=== PATIENT | male | born 1985 | race Caucasian/White ===

== ENCOUNTER 2020-09-29 12:48 | Inpatient (IN) | payer OTHER ==
[~2020-09-29] VITALS: Ht 180.3 cm; Wt 90.7 kg
[~2020-09-29 12:48] MED LIST: GILTUSS TR1 TAB.SR . PO; PROAIR HFA8.5 GM IH
[2020-10-06] MEDS ORDERED: B-100 COMPLEX100 MG PO (16:44)
[2020-10-06] MEDS ORDERED: CHLORDIAZEPOXID25 MG PO (16:45)
[2020-10-06] MEDS ORDERED: PROTONIX40 MG PO (16:45)
== END 2020-10-06 18:29 | disposition home or self-care (01) | DRG 391 ==
LOC: ER 12:48 → MEDI 09-30 12:01 → MEDJ 10-03 14:04
PROVIDERS: ADMIT Internal Medicine; ATTEND Internal Medicine
PROC: 0DJ08ZZ Inspection of Upper Intestinal Tract, Via Natural or Artificial Opening Endoscopic (ICD-10-PCS; principal; 2020-10-05)
DX: K29.80 Duodenitis without bleeding (principal); K85.80 Other acute pancreatitis without necrosis or infection; R18.8 Other ascites; I10 Essential (primary) hypertension; F10.20 Alcohol dependence, uncomplicated; Z72.0 Tobacco use; E78.1 Pure hyperglyceridemia; E11.65 Type 2 diabetes mellitus with hyperglycemia; Z79.4 Long term (current) use of insulin